=== PATIENT | male | born 1985 ===

== ENCOUNTER 2018-08-06 11:58 | Emergency (ER) | payer OTHER ==
[~2018-08-06] VITALS: Ht 193 cm; Wt 87.1 kg
[2018-08-06] MEDS ORDERED: DEXAMETHASONE0.75 MG PO (12:14)
[2018-08-06] MEDS ORDERED: BENADRYL50 MG PO (12:14)
[2018-08-06] MEDS ORDERED: MEDROLPACK PO (15:56)
[2018-08-06] MEDS ORDERED: BENADRYL25 MG PO (15:56)
[2018-08-06] MEDS ORDERED: ZYRTEC10 M3 PO (15:56)
== END 2018-08-06 16:24 | disposition home or self-care (01) ==
LOC: ER 11:58
DX: R21 Rash and other nonspecific skin eruption (principal); T78.49XA Other allergy, initial encounter; X58.XXXA Exposure to other specified factors, initial encounter